=== PATIENT | female | born 1940 | race Caucasian/White ===

== ENCOUNTER 2017-08-28 10:04 | Inpatient (IN) ==
[2017-08-28] MEDS ORDERED: ALPRAZOLAM 0.5 MG PO PRN (12:39)
[2017-08-28] MEDS ORDERED: Sennosides/Docusate Sodium TABLET PO PRN (12:39)
[2017-08-28] MEDS ORDERED: levoFLOXacin 500 MG TABLET PO SCH (12:45)
[2017-08-28] MEDS: ALPRAZolam 0.5 MG TABLET PO PRN (20:43)
[2017-08-28] MEDS: Famotidine 20 MG TABLET PO SCH (20:43)
[2017-08-29] MEDS: ALPRAZolam 0.5 MG TABLET PO PRN ×5 (00:49→23:25)
[2017-08-29 05:43] LABS: Basophils % 0.2 %; Eosinophils # 0.1 K/mcL (0.0-0.6); Eosinophils % 0.8 %; Hematocrit 32.4 % (35.3-44.9); Hemoglobin 10.2 g/dL (11.5-15.4); Lymphocytes # 2.7 K/mcL (0.6-4.6); Lymphocytes % 21.6 %; Mean Corpuscular HGB Conc 31.5 g/dL (31.6-35.5); Mean Corpuscular Hemoglobin 25.6 pg (28.0-33.3); Mean Corpuscular Volume 81.4 fL (83.0-100.0); Mean Platelet Volume 9.8 fL (9.4-12.4); Monocytes # 0.8 K/mcL (0.0-1.3); Monocytes % 6.3 %; Neutrophils # 8.8 K/mcL (1.6-8.9); Platelet Count 399 K/mcL (140-400); Red Blood Count 3.98 M/mcL (3.82-4.97); Segmented Neutrophils % 70.1 %
[2017-08-29 05:49] LABS: INR 1.1; Prothrombin Time 12.3 Seconds (9.4-12.1)
[2017-08-29 05:52] LABS: Activated Partial Thrombo Time 29.2 Seconds (26.0-36.0)
[2017-08-29 06:13] LABS: Anisocytosis 2+ (Not Present); Poikilocytosis 1+ (Not Present)
[2017-08-29 06:14] LABS: Hypochromasia Present (Not Present); Target Cells 1+ (Not Present)
[2017-08-29 06:16] LABS: Platelet Estimate Normal (Normal)
[2017-08-29 06:18] LABS: BUN/Creatinine Ratio 13 (6-26); Blood Urea Nitrogen 10 mg/dL (7-20); Calcium 9.1 mg/dL (8.6-10.8); Carbon Dioxide 31 mEq/L (19-29); Chloride 101 mEq/L (98-109); Glucose 76 mg/dL (70-99); Osmolality,Calculated 292 (280-300); Potassium 3.8 mEq/L (3.5-4.5); Sodium 142 mEq/L (136-145); eGFR For African Americans > 60 (> 60); eGFR For Non-African Americans > 60 (> 60)
[2017-08-29] MEDS: Metoprolol XL (24 HR) Succ 25 MG TAB.ER.24H PO SCH (11:12)
[2017-08-29] MEDS: Aspirin Enteric Coated 325 MG Tablet PO SCH ×2 (11:12→11:18)
[2017-08-29] MEDS: Spironolactone 25 MG TABLET PO SCH (11:13)
--- NOTE | 2017-08-29 14:22 | Internal Med History&Physical ---
Date of Encounter: 08/29/17 Time of Encounter: 13:45 Assessment and Plan (1) Bilateral pneumonia Current visit: No Status: Acute Appears clinically resolved. We will discontinue antibiotic. Qualifiers: Pneumonia type: due to unspecified organism Lung location: unspecified part of lung Qualified Code(s): J18.9 - Pneumonia, unspecified organism (2) Microcytic anemia Current visit: Yes Status: Acute Suspect iron deficiency with use of aspirin and known cecal mass. Will order anemia testing in a.m. (3) Congestive heart failure Current visit: No Status: Chronic Echocardiogram 08/25/2017 showed LVEF of 20% with indeterminant diastolic function. There was mild aortic regurgitation and mild mitral regurgitation. Qualifiers: Congestive heart failure type: systolic Congestive heart failure chronicity : acute Qualified Code(s): I50.21 - Acute systolic (congestive) heart failure (4) Cecum mass Current visit: No Status: Acute Will order repeat CT scan of abdomen/pelvis. CEA was elevated at 8.0 on 2016. We will recheck CEA in a.m. (5) Dementia Current visit: No Status: Chronic Head CT 01/01/2017 showed no acute findings. Will order TSH and B12 level. Qualifiers: Dementia type: unspecified type Dementia behavioral disturbance: without behavioral disturbance Qualified Code(s): F03.90 - Unspecified dementia without behavioral disturbance Internal Medicine - H&P: HPI Chief complaint: Sepsis Admitted From: Hospital to Hospital Transfer Plans for Post Hospital Care: Transfer Group Home Care History of present illness: Ms. Linn is a 77 year old female who was hospitalized at [facility] August 21 after presenting with dyspnea. She was felt to have HCAP and was given IV antibiotics. Cultures were negative. It was felt she would benefit from ongoing therapy and she was transferred to [facility] swing bed. She has significant dementia and could not give any reliable history. Past Med Surg Social Fam HX - Past Medical History Medical history: no medical history, dementia, other Psychiatric history: anxiety, depression - Social History Smoking Status: Current every day smoker Smokeless Tobacco Status: No Alcohol use: rarely Drug use: none - Family History Father Family Member Ethnicity: Non- Living Status: Mother Family Member Ethnicity: Non- Living Status: Hx Family Cardiac Disorders: Yes (VA, Stroke) Brother Family Member Ethnicity: Non- Living Status: Still Living Hx Family Endocrine Disorder: Yes (DM) Internal Medicine - H&P: Meds Alprazolam [Alprazolam Xr] 0.5 mg PO Q4H PRN 08/21/17 [History] Aspirin/Calcium Carbonate/Mag [Aspirin Buffered 325 mg Tab] 325 mg PO DAILY 01/01 [History] Metoprolol XL (24 HR) Succ [Toprol Xl] 25 mg PO DAILY 08/21/17 [History] Ranitidine HCl [Heartburn Relief] 150 mg PO HS 08/21/17 [History] Sennosides/Docusate Sodium [Senna-Docusate Sodium Tablet] 1 tab PO DAILY PRN 01/01 [History] Spironolactone [Aldactone] 25 mg PO DAILY 08/21/17 [History] ALPRAZolam [Xanax 0.5 MG Tablet] 0.5 mg PO Q4H PRN #20 tablet 08/27/17 [Rx] HYDROcodone/Acet 5/325 mg [[place] 5-325 mg] 1 tab PO Q4H PRN #20 tablet 08/27/17 [Rx] levoFLOXacin [Levaquin] 750 mg PO Q48H #3 tablet 08/27/17 [Rx] 3 Allergy/AdvReac Type Severity Reaction Status Date / Time Sulfa (Sulfonamide Allergy Rash Verified 08/21/17 09:10 Antibiotics) All Systems PM: A 10-system review of systems was performed and is negative for pertinent findings except as documented above in the HPI. Review of systems: Unobtainable from the patient. Review of medical records reveal the following: Gen.: Her weight has decreased from 42.6 kg 01/01/2017 to 36.2 kg on admission now. Cardiovascular: There is no documented hypertension. She has chronic systolic heart failure with echocardiogram done during her recent [facility] stay showing LVEF of 20%. There was indeterminate diastolic function. There was mild aortic regurgitation and mild mitral regurgitation. Carotid Doppler studies 2011 showed right ICA with 60-79% stenosis and minimal left carotid system plaque. No mention of VA DVT or pulmonary embolus. Respiratory: Patient has smoked up to 2 packs per day for at least 40 years. No PFTs are found. GI: She was found to have a 3.1 x 3.4 x 3.7 cm cecal mass on December 2016 abdomen/ pelvis CT scan. She left AMA and apparently no surgery has been done for presumed primary colon cancer. No mention of disorders of liver or exocrine pancreas. : No mention of hematuria dysuria or kidney stones Neurologic: She has dementia. There is no mention of large distribution strokes or seizures. 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 She has microcytic anemia on blood work today. Psychiatric: No mention of anxiety depression or other mental health issues Musk skeletal: No mention of arthritis gout other bone joint or muscle disorders. - Constitutional Vitals: Temp Pulse Resp BP Pulse Ox 98.1 F 115 18 115/74 93 08/29/17 10:30 08/29/17 10:30 08/29/17 10:30 08/29/17 10:30 08/29/17 11:26 Exam: Gen.: She is well-developed lean female lying in bed who appears in no acute distress she is pleasant but confused. HEENT: Head is atraumatic and normocephalic. Eyes: EOMI. There is no scleral icterus. Mouth: Mucosa is moist. Neck: Supple and nontender. There is no thyromegaly or adenopathy noted. Heart: Regular without murmurs gallops or ectopics rate is approximately 104/m. Lungs: She has diminished breath sounds diffusely. No wheezes or crackles are heard. Abdomen: Soft and nontender. No masses or guarding are noted. 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 There is trace edema in the rebeca-malleolar area. Dorsalis pedis and posttibial pulses are trace palpable bilaterally. Her feet are warm to touch. She has DJD changes of her hands. Neurologic: Mental status: She attempts to answer questions but is a very poor historian. She does not know her age, location, or any significant past history. Cranial nerves: Smile is symmetric. Forehead wrinkles bilaterally. Tongue protrudes midline. EOMI. Motor: There is no pronator drift. Cerebellar : Finger to nose is intact bilaterally. Skin: Warm and dry Internal Med - H&P Results - Labs CBC & Chem 7: 08/29/17 05:12 08/29/17 05:12 Labs: Short CBC 08/29/17 Range/Units 05:12 WBC 12.6 H (4.3-11.1) K/mcL Hgb 10.2 L (11.5-15.4) g/dL Hct 32.4 L (35.3-44.9) % Plt Count 399 (140-400) K/mcL Neutrophils # 8.8 (1.6-8.9) K/mcL BMP 08/29/17 05:12 Sodium 142 Potassium 3.8 Chloride 101 Carbon Dioxide 31 H BUN 10 Creatinine 0.75 Glucose 76 Calcium 9.1
[2017-08-29] MEDS: Famotidine 20 MG TABLET PO SCH (20:27)
[2017-08-30] MEDS: ALPRAZolam 0.5 MG TABLET PO PRN ×3 (06:44→23:11)
[2017-08-30] MEDS: Metoprolol XL (24 HR) Succ 25 MG TAB.ER.24H PO SCH (14:15)
[2017-08-30] MEDS: Spironolactone 25 MG TABLET PO SCH (14:15)
[2017-08-30] MEDS: Aspirin 81 MG TAB.CHEW PO SCH (14:15)
--- NOTE | 2017-08-30 15:01 | Internal Med Progress Note ---
Date of Encounter: 08/30/17 Time of Encounter: 14:55 - Assessment and plan (1) Bilateral pneumonia Current Visit: No Status: Acute Assessment and plan: August 30. Remain off antibiotic. Qualifiers: Pneumonia type: due to unspecified organism Lung location: unspecified part of lung Qualified Code(s): J18.9 - Pneumonia, unspecified organism (2) Microcytic anemia Current Visit: Yes Status: Acute Assessment and plan: August 30. Labs have just been drawn. (3) Congestive heart failure Current Visit: No Status: Chronic Assessment and plan: August 30. Continue Toprol and Aldactone. Qualifiers: Congestive heart failure type: systolic Congestive heart failure chronicity : acute Qualified Code(s): I50.21 - Acute systolic (congestive) heart failure (4) Cecum mass Current Visit: No Status: Acute Assessment and plan: August 30. Cecal mass has increased in size since the December 2016 CT scan. No evidence of metastases are seen. I suspect this is primary colon cancer. 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 (5) Dementia Current Visit: No Status: Chronic Assessment and plan: August 30. Dementia workup labs are pending. Qualifiers: Dementia type: unspecified type Dementia behavioral disturbance: without behavioral disturbance Qualified Code(s): F03.90 - Unspecified dementia without behavioral disturbance - Subjective Interval history: August 30. She is sleeping at present time and does not awaken to voice or light touch. She declined blood draw this morning. Lab personnel have just completed the venopuncture. No new problems are reported by nursing staff. - Constitutional Vitals: Temp Pulse Resp BP Pulse Ox 98.8 F 89 18 116/71 93 08/29/17 20:59 08/29/17 20:59 08/29/17 20:59 08/29/17 20:59 08/29/17 20:59 Exam: She is resting comfortably and appears in no acute distress. Her heart is regular with rate approximately 104/m. Lungs are clear anteriorly. I reviewed her medications, labs, and CT report. Internal Medicine: Result - Labs CBC & Chem 7: 08/29/17 05:12 08/29/17 05:12 - ABG Interpretation ABG results: PT/INR, D-dimer PT 12.3 Seconds (9.4-12.1) H 08/29/17 05:12 - Impressions Impressions Abdomen/Pelvis CT 08/29/17 14:35 IMPRESSION: 1. Evaluation limited by lack of intravenous contrast. An ill-defined circumferential mass in the region of the cecum measures up to 4.8 x 4.0 cm, moderately increased in size from prior exam. No definite evidence of metastatic disease. 2. Partially visualized left pleural effusion. Small fluid density focus along the right major fissure measuring up to 11 mm is favored to represent fluid within the fissure. 3. Small cystic focus measuring 7 mm within the left hepatic lobe is stable from prior exams, and is technically too small to characterize but is most consistent with a simple cyst. 4. Small bilateral adrenal adenomas. D/ / 08/29/2017 15:43:59 Han Ashraf MD / [facility] Interpreting Provider: Han Ashraf MD Consult Discharge Plan - Plan Referrals: Damon Gerber MD [Primary Care Provider] - 1 week
[2017-08-30 15:20] LABS: Phosphorous 2.9 mg/dL (2.3-4.7)
[2017-08-30 15:42] LABS: Thyroid Stimulating Hormone 3.553 mcIU/mL (0.350-4.840)
[2017-08-30] MEDS: Famotidine 20 MG TABLET PO SCH (19:34)
[2017-08-30 19:40] LABS: Carcinoembryonic Antigen 8.4 ng/mL (Less than 5.0)
[2017-08-31] MEDS: Spironolactone 25 MG TABLET PO SCH (07:57)
[2017-08-31] MEDS: Metoprolol XL (24 HR) Succ 25 MG TAB.ER.24H PO SCH (07:58)
[2017-08-31] MEDS: Aspirin 81 MG TAB.CHEW PO SCH (07:58)
[2017-08-31 08:13] LABS: Basophils # 0.1 K/mcL (0.0-0.2); Basophils % 0.3 %; Eosinophils # 0.1 K/mcL (0.0-0.6); Eosinophils % 0.5 %; Hemoglobin 12.1 g/dL (11.5-15.4); Immature Granulocytes % 0.6 % (0-4); Mean Corpuscular Hemoglobin 25.6 pg (28.0-33.3); Mean Corpuscular Volume 82.5 fL (83.0-100.0); Mean Platelet Volume 9.5 fL (9.4-12.4); Monocytes # 1.1 K/mcL (0.0-1.3); Monocytes % 5.3 %; Neutrophils # 15.8 K/mcL (1.6-8.9); Platelet Count 469 K/mcL (140-400); Red Blood Count 4.73 M/mcL (3.82-4.97); Segmented Neutrophils % 78.3 %
[2017-08-31 09:08] LABS: Platelet Estimate Increased (Normal); Poikilocytosis 1+ (Not Present); Target Cells 1+ (Not Present)
[2017-08-31] MEDS: ALPRAZolam 0.5 MG TABLET PO PRN (10:33)
[2017-08-31] MEDS: Isosorbide MONOnitrate (24 HR) 30 MG TAB.ER.24H PO SCH (12:40)
[2017-08-31] MEDS: Bumetanide 1 MG TABLET PO SCH (12:40)
--- NOTE | 2017-08-31 15:32 | Internal Med Progress Note ---
Date of Encounter: 08/31/17 Time of Encounter: 11:30 - Assessment and plan (1) Bilateral pneumonia Current Visit: No Status: Acute Assessment and plan: August 30. Remain off antibiotic. Qualifiers: Pneumonia type: due to unspecified organism Lung location: unspecified part of lung Qualified Code(s): J18.9 - Pneumonia, unspecified organism (2) Microcytic anemia Current Visit: Yes Status: Acute Assessment and plan: August 30. Labs have just been drawn. August 31. Anemia testing shows iron 22, transferrin saturation 10%, transferrin 157, ferritin 231, B12 639, and folate 15.0. I will start her on ferrous sulfate with vitamin C. (3) Congestive heart failure Current Visit: No Status: Chronic Assessment and plan: August 30. Continue Toprol and Aldactone. Qualifiers: Congestive heart failure type: systolic Congestive heart failure chronicity : acute Qualified Code(s): I50.21 - Acute systolic (congestive) heart failure (4) Cecum mass Current Visit: No Status: Acute Assessment and plan: August 30. Cecal mass has increased in size since the December 2016 CT scan. No evidence of metastases are seen. I suspect this is primary colon cancer. I attempted unsuccessfully to reach her listed contact lens polisher. August 31. I discussed this with her grandson. He reports cardiology has recommended stents be placed prior to consideration for surgery. I explained to him that the patient's LVEF was 20% and that surgery/anesthesia might be reluctant to proceed with a significant surgical procedure. I told him an alternative would be comfort measures/hospice. (5) Dementia Current Visit: No Status: Chronic Assessment and plan: August 30. Dementia workup labs are pending. August 31. B12 and TSH were normal. Qualifiers: Dementia type: unspecified type Dementia behavioral disturbance: without behavioral disturbance Qualified Code(s): F03.90 - Unspecified dementia without behavioral disturbance (6) Heart failure Current Visit: Yes Status: Chronic Assessment and plan: August 31. Continue Toprol and Aldactone. I started her on isosorbide and Bumex. We will monitor BNP peptide and clinical response. Qualifiers: Heart failure type: systolic Heart failure chronicity: chronic Qualified Code(s): I50.22 - Chronic systolic (congestive) heart failure - Subjective Interval history: August 30. She is sleeping at present time and does not awaken to voice or light touch. She declined blood draw this morning. Lab personnel have just completed the venopuncture. No new problems are reported by nursing staff. August 31. She has no complaints. She is still lethargic. - Constitutional Vitals: Temp Pulse Resp BP Pulse Ox 97.6 F 104 18 128/75 94 08/31/17 07:43 08/31/17 07:43 08/31/17 07:43 08/31/17 07:43 08/31/17 07:43 Exam: She is resting comfortably in bed. She opens her eyes minimally to light touch and voice. Extremities show no edema. Heart is regular without murmurs gallops or ectopics. Lungs are clear anteriorly. I reviewed her medications and lab results. I spoke with her grandson about her diagnosis. Internal Medicine: Result - Labs CBC & Chem 7: 08/31/17 07:45 08/29/17 05:12 Labs: Short CBC 08/31/17 Range/Units 07:45 WBC 20.2 H D (4.3-11.1) K/mcL Hgb 12.1 D (11.5-15.4) g/dL Hct 39.0 (35.3-44.9) % Plt Count 469 H (140-400) K/mcL Neutrophils # 15.8 H (1.6-8.9) K/mcL - ABG Interpretation ABG results: PT/INR, D-dimer PT 12.3 Seconds (9.4-12.1) H 08/29/17 05:12 - Impressions Impressions Chest CT 08/31/17 11:47 IMPRESSION: 1. Diffuse bilateral tree-in-bud opacities likely due to bronchiolitis rather than endobronchial metastatic disease. 2. Focal ground-glass opacities and consolidation within the bilateral upper and left lower lobes likely due to developing pneumonia. Recommend chest CT in 8 weeks to confirm resolution. 3. Enlarging small to moderate left pleural effusion with partial collapse of the left lower lobe. 4. Unchanged 4 mm right upper lobe pulmonary nodule. D/ / 08/31/2017 14:16:21 Jerald Cordova MD / [facility] Interpreting Provider: Jerald Cordova MD Consult Discharge Plan - Plan Referrals: Damon Gerber MD [Primary Care Provider] - 1 week
[2017-08-31] MEDS: *HR* HYDROcodone/Acet 5/325 mg TABLET PO PRN (19:50)
[2017-08-31] MEDS: ALPRAZolam 0.25 MG TABLET PO PRN (19:51)
[2017-08-31] MEDS: Famotidine 20 MG TABLET PO SCH (19:51)
[2017-09-01] MEDS: Ascorbic Acid 500 MG TABLET PO SCH (06:21)
[2017-09-01] MEDS: Bumetanide 1 MG TABLET PO SCH (08:09)
[2017-09-01] MEDS: Isosorbide MONOnitrate (24 HR) 30 MG TAB.ER.24H PO SCH (08:09)
[2017-09-01] MEDS: Metoprolol XL (24 HR) Succ 25 MG TAB.ER.24H PO SCH (08:09)
[2017-09-01] MEDS: Spironolactone 25 MG TABLET PO SCH (08:09)
[2017-09-01] MEDS: Aspirin 81 MG TAB.CHEW PO SCH (08:10)
[2017-09-01] MEDS: Nicotine 21 MG PATCH.TD24 TD SCH (14:20)
[2017-09-01] MEDS: ALPRAZolam 0.25 MG TABLET PO PRN ×2 (14:21→19:34)
[2017-09-01] MEDS ORDERED: Oxymetazoline Nasal SPRAY BOTTLE NS PRN (17:14)
--- NOTE | 2017-09-01 18:43 | Internal Med Progress Note ---
Date of Encounter: 09/01/17 Time of Encounter: 18:35 - Assessment and plan (1) Bilateral pneumonia Current Visit: No Status: Acute Assessment and plan: August 30. Remain off antibiotic. Qualifiers: Pneumonia type: due to unspecified organism Lung location: unspecified part of lung Qualified Code(s): J18.9 - Pneumonia, unspecified organism (2) Microcytic anemia Current Visit: Yes Status: Acute Assessment and plan: August 30. Labs have just been drawn. August 31. Anemia testing shows iron 22, transferrin saturation 10%, transferrin 157, ferritin 231, B12 639, and folate 15.0. I will start her on ferrous sulfate with vitamin C. (3) Congestive heart failure Current Visit: No Status: Chronic Assessment and plan: August 30. Continue Toprol and Aldactone. September 01. Continue Toprol, Aldactone, Bumex, and isosorbide. Qualifiers: Congestive heart failure type: systolic Congestive heart failure chronicity : acute Qualified Code(s): I50.21 - Acute systolic (congestive) heart failure (4) Cecum mass Current Visit: No Status: Acute Assessment and plan: August 30. Cecal mass has increased in size since the December 2016 CT scan. No evidence of metastases are seen. I suspect this is primary colon cancer. I attempted unsuccessfully to reach her listed wardsperson. August 31. I discussed this with her grandson. He reports cardiology has recommended stents be placed prior to consideration for surgery. I explained to him that the patient's LVEF was 20% and that surgery/anesthesia might be reluctant to proceed with a significant surgical procedure. I told him an alternative would be comfort measures/hospice. (5) Dementia Current Visit: No Status: Chronic Assessment and plan: August 30. Dementia workup labs are pending. August 31. B12 and TSH were normal. Qualifiers: Dementia type: unspecified type Dementia behavioral disturbance: without behavioral disturbance Qualified Code(s): F03.90 - Unspecified dementia without behavioral disturbance - Subjective Interval history: August 30. She is sleeping at present time and does not awaken to voice or light touch. She declined blood draw this morning. Lab personnel have just completed the venopuncture. No new problems are reported by nursing staff. August 31. She has no complaints. She is still lethargic. September 01. She has no complaints. She is fully awake and talkative now. - Constitutional Vitals: Temp Pulse Resp BP Pulse Ox 98.2 F 88 17 117/62 98 09/01/17 07:06 09/01/17 07:06 09/01/17 07:06 09/01/17 07:06 09/01/17 13:20 Exam: She is sitting on the side of the bed and appears in no acute distress. Extremities show no edema. Heart is regular without murmurs gallops or ectopics. Lungs are clear with diminished breath sounds diffusely. I reviewed her medications and lab results. Internal Medicine: Result - Labs CBC & Chem 7: 08/31/17 07:45 08/29/17 05:12 - ABG Interpretation ABG results: PT/INR, D-dimer PT 12.3 Seconds (9.4-12.1) H 08/29/17 05:12 - Impressions Impressions Abdomen/Pelvis CT 08/29/17 14:35 IMPRESSION: 1. Evaluation limited by lack of intravenous contrast. An ill-defined circumferential mass in the region of the cecum measures up to 4.8 x 4.0 cm, moderately increased in size from prior exam. No definite evidence of metastatic disease. 2. Partially visualized left pleural effusion. Small fluid density focus along the right major fissure measuring up to 11 mm is favored to represent fluid within the fissure. 3. Small cystic focus measuring 7 mm within the left hepatic lobe is stable from prior exams, and is technically too small to characterize but most likely represents a simple cyst. 4. Small bilateral adrenal adenomas. D/ / 08/29/2017 15:43:59 Han Ashraf MD / [facility] Interpreting Provider: Han Ashraf MD Consult Discharge Plan - Plan Referrals: Damon Gerber MD [Primary Care Provider] - 1 week
[2017-09-01] MEDS: *HR* HYDROcodone/Acet 5/325 mg TABLET PO PRN (19:33)
[2017-09-01] MEDS: Famotidine 20 MG TABLET PO SCH (19:34)
[2017-09-02] MEDS: *HR* HYDROcodone/Acet 5/325 mg TABLET PO PRN ×2 (04:40→16:43)
[2017-09-02] MEDS: Ascorbic Acid 500 MG TABLET PO SCH (04:41)
[2017-09-02] MEDS: ALPRAZolam 0.25 MG TABLET PO PRN ×2 (04:41→16:44)
[2017-09-02 07:35] LABS: Basophils # 0.1 K/mcL (0.0-0.2); Basophils % 0.4 %; Eosinophils # 0.2 K/mcL (0.0-0.6); Hematocrit 29.8 % (35.3-44.9); Hemoglobin 9.5 g/dL (11.5-15.4); Immature Granulocytes % 0.8 % (0-4); Lymphocytes % 12.6 %; Mean Corpuscular HGB Conc 31.9 g/dL (31.6-35.5); Mean Corpuscular Volume 81.4 fL (83.0-100.0); Mean Platelet Volume 9.3 fL (9.4-12.4); Monocytes # 1.2 K/mcL (0.0-1.3); Monocytes % 7.5 %; Neutrophils # 12.1 K/mcL (1.6-8.9); Platelet Count 487 K/mcL (140-400); Red Blood Count 3.66 M/mcL (3.82-4.97); Segmented Neutrophils % 77.7 %
[2017-09-02 07:47] LABS: BUN/Creatinine Ratio 23 (6-26); Blood Urea Nitrogen 18 mg/dL (7-20); Calcium 8.5 mg/dL (8.6-10.8); Carbon Dioxide 30 mEq/L (19-29); Chloride 102 mEq/L (98-109); Glucose 92 mg/dL (70-99); Osmolality,Calculated 292 (280-300); Potassium 3.4 mEq/L (3.5-4.5); Sodium 140 mEq/L (136-145); eGFR For African Americans > 60 (> 60); eGFR For Non-African Americans > 60 (> 60)
[2017-09-02 07:59] LABS: Hypochromasia Present (Not Present); Platelet Estimate Normal (Normal); Target Cells 2+ (Not Present)
[2017-09-02] MEDS: Spironolactone 25 MG TABLET PO SCH (15:06)
[2017-09-02] MEDS: Bumetanide 1 MG TABLET PO SCH (15:06)
[2017-09-02] MEDS: Isosorbide MONOnitrate (24 HR) 30 MG TAB.ER.24H PO SCH (15:06)
[2017-09-02] MEDS: Aspirin 81 MG TAB.CHEW PO SCH (15:06)
[2017-09-02] MEDS: Metoprolol XL (24 HR) Succ 25 MG TAB.ER.24H PO SCH (15:06)
[2017-09-02] MEDS: Nicotine 21 MG PATCH.TD24 TD SCH (15:08)
[2017-09-02] MEDS ORDERED: Aspirin 81 MG TAB.CHEW PO SCH (17:15)
[2017-09-02] MEDS: Famotidine 20 MG TABLET PO SCH (22:56)
[2017-09-03] MEDS: *HR* HYDROcodone/Acet 5/325 mg TABLET PO PRN (00:49)
[2017-09-03] MEDS: ALPRAZolam 0.25 MG TABLET PO PRN ×2 (00:50→18:08)
[2017-09-03] MEDS: Metoprolol XL (24 HR) Succ 25 MG TAB.ER.24H PO SCH (12:30)
[2017-09-03] MEDS: Isosorbide MONOnitrate (24 HR) 30 MG TAB.ER.24H PO SCH ×2 (12:31→14:32)
[2017-09-03] MEDS: Bumetanide 1 MG TABLET PO SCH ×2 (12:31→14:31)
[2017-09-03] MEDS: Spironolactone 25 MG TABLET PO SCH ×2 (12:32→14:31)
[2017-09-03] MEDS: Nicotine 21 MG PATCH.TD24 TD SCH (12:38)
[2017-09-03] MEDS: Ascorbic Acid 500 MG TABLET PO SCH ×2 (12:38→14:31)
[2017-09-03] MEDS: Famotidine 20 MG TABLET PO SCH (22:20)
[2017-09-04] MEDS: ALPRAZolam 0.25 MG TABLET PO PRN (00:27)
[2017-09-04 12:12] VITALS: BP 108/66
--- NOTE | 2017-09-04 13:48 | Discharge Summary ---
Date of Encounter: 09/04/17 Time of Encounter: 13:40 - Discharge Diagnosis (1) Bilateral pneumonia Priority: Primary Status: Acute Qualifiers: Pneumonia type: due to unspecified organism Lung location: unspecified part of lung Qualified Code(s): J18.9 - Pneumonia, unspecified organism (2) Microcytic anemia Priority: Secondary Status: Acute (3) Congestive heart failure Priority: Secondary Status: Chronic Qualifiers: Congestive heart failure type: systolic Congestive heart failure chronicity : acute Qualified Code(s): I50.21 - Acute systolic (congestive) heart failure (4) Cecum mass Priority: Secondary Status: Chronic (5) Dementia Priority: Secondary Status: Chronic Qualifiers: Dementia type: unspecified type Dementia behavioral disturbance: without behavioral disturbance Qualified Code(s): F03.90 - Unspecified dementia without behavioral disturbance - Discharge Medications Prescriptions: Ascorbic Acid [Vitamin C] 500 mg PO 0630 #30 tablet Bumetanide [Bumex] 0.5 mg PO DAILY #7 tablet Ferrous Sulfate 325 mg PO 0630 #30 tablet Isosorbide MONOnitrate (24 HR) [Imdur] 30 mg PO DAILY #30 tab.er.24h Potassium Chloride 10 meq PO DAILY #14 tab.er.prt Home Medications: Alprazolam [Alprazolam Xr] 0.5 mg PO Q4H PRN 08/21/17 [History] Metoprolol XL (24 HR) Succ [Toprol Xl] 25 mg PO DAILY 08/21/17 [History] Ranitidine HCl [Heartburn Relief] 150 mg PO HS 08/21/17 [History] Sennosides/Docusate Sodium [Senna-Docusate Sodium Tablet] 1 tab PO DAILY PRN 01/01 [History] Spironolactone [Aldactone] 25 mg PO DAILY 08/21/17 [History] HYDROcodone/Acet 5/325 mg [[place] 5-325 mg] 1 tab PO Q4H PRN #20 tablet 08/27/17 [Rx] ALPRAZolam [Xanax 0.5 MG Tablet] 0.25 mg PO Q6H PRN #20 tablet 09/04/17 [Rx] Ascorbic Acid [Vitamin C] 500 mg PO 0630 #30 tablet 09/04/17 [Rx] Aspirin 81 mg PO Q48H tab.chew 09/04/17 [Rx] Bumetanide [Bumex] 0.5 mg PO DAILY #7 tablet 09/04/17 [Rx] Ferrous Sulfate 325 mg PO 0630 #30 tablet 09/04/17 [Rx] Isosorbide MONOnitrate (24 HR) [Imdur] 30 mg PO DAILY #30 tab.er.24h 09/04/17 [ Rx] Potassium Chloride 10 meq PO DAILY #14 tab.er.prt 09/04/17 [Rx] Allergies/Adverse Reactions: 3 Allergy/AdvReac Type Severity Reaction Status Date / Time Sulfa (Sulfonamide Allergy Rash Verified 08/21/17 09:10 Antibiotics) Date of admission: 08/28/17 12:15 Primary care physician: Damon Gerber MD Consults: 08/28/17 12:31 Consult to Occupational Therapy [CONS] Routine Comment: Eval, Develop, and Implement P.O.C. Reason for Consult: Eval, Develop, and Implement P.O.C. Consult to Physical Therapy [CONS] Routine Comment: Eval, Develop, and Implement P.O.C. Reason for Consult: Eval, Develop, and Implement P.O.C. Consult to Optics Manufacturing Technician [CONS] Routine Reason for SW Consult: D/C planning - Patient Status Disposition: Hospice - Home - Discharge Instructions Follow Up With: Damon Gerber MD [Primary Care Provider] - 1 week - Diet and Activity Activity: resume usual activities as tolerated Diet: advance to your usual diet Hospital course: Ms. Linn is a 77 year old female who was hospitalized at [facility] August 21- after presenting with dyspnea. She was felt to have HCAP and was given IV antibiotics. Cultures were negative. It was felt she would benefit from ongoing therapy and she was transferred to [facility] swing bed. Initial orders were written by the discharging physicians at [facility]. I saw her on August 29 and performed a swing bed history and physical. She appeared clinically resolved from pneumonia so antibodies were not continued after the first day in swing bed. Abdominal/pelvic CT was done to follow-up on previously seen cecal mass. There was further enlargement of the mass compared to the December 2016 study without evidence of metastases. I spoke with her grandson Wilmer Waggoner about this. Family elected she be placed back on hospice without further aggressive intervention to be done. CEA returned further elevated at 8.4. Begin peptide was elevated at 4289. She was started on isosorbide and Bumex. The Bn peptide improved to 658 by September 02. She will continue on these medications with supplemental potassium at discharge. Physical therapy and occupational therapy evaluations were done. The patient had significantly impaired comprehension and could not participate significantly in therapy. Social service worked with APS to resolve potential issues in the home environment. I reviewed the social service note of 09/04/2017 at 0942. It was agreed the patient would go back on hospice services and be discharged to her grandson [facility]mer [facility] [place] [facility] [place]. She will follow with her PCP within one week. - Time Spent with Patient Total time spent providing and/or coordinating discharge services: - Constitutional Vitals: Temp Pulse Resp BP Pulse Ox 97.7 F 103 16 108/66 93 09/04/17 12:09 09/04/17 12:09 09/04/17 12:09 09/04/17 12:09/04/17 12:09
--- NOTE | 2017-09-04 14:05 | Physician Discharge Referral ---
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 For more information, call the [place] Tobacco Quit Line at 5-677-ILRI-NOW. - Diet/Nutrition Diet/Nutrition Orders: Regular - Activity Activity Orders: Walker - Services Needed Following services are medically necessary services: Nursing, Home Health Aide, Physical Therapy, Occupational Therapy - Transfer Medications Prescriptions: Ascorbic Acid [Vitamin C] 500 mg PO 0630 #30 tablet Bumetanide [Bumex] 0.5 mg PO DAILY #7 tablet Ferrous Sulfate 325 mg PO 0630 #30 tablet Isosorbide MONOnitrate (24 HR) [Imdur] 30 mg PO DAILY #30 tab.er.24h Potassium Chloride 10 meq PO DAILY #14 tab.er.prt Home Medications: Alprazolam [Alprazolam Xr] 0.5 mg PO Q4H PRN 08/21/17 [History] Metoprolol XL (24 HR) Succ [Toprol Xl] 25 mg PO DAILY 08/21/17 [History] Ranitidine HCl [Heartburn Relief] 150 mg PO HS 08/21/17 [History] Sennosides/Docusate Sodium [Senna-Docusate Sodium Tablet] 1 tab PO DAILY PRN 01/01 [History] Spironolactone [Aldactone] 25 mg PO DAILY 08/21/17 [History] HYDROcodone/Acet 5/325 mg [[place] 5-325 mg] 1 tab PO Q4H PRN #20 tablet 08/27/17 [Rx] ALPRAZolam [Xanax 0.5 MG Tablet] 0.25 mg PO Q6H PRN #20 tablet 09/04/17 [Rx] Ascorbic Acid [Vitamin C] 500 mg PO 0630 #30 tablet 09/04/17 [Rx] Aspirin 81 mg PO Q48H tab.chew 09/04/17 [Rx] Bumetanide [Bumex] 0.5 mg PO DAILY #7 tablet 09/04/17 [Rx] Ferrous Sulfate 325 mg PO 0630 #30 tablet 09/04/17 [Rx] Isosorbide MONOnitrate (24 HR) [Imdur] 30 mg PO DAILY #30 tab.er.24h 09/04/17 [ Rx] Potassium Chloride 10 meq PO DAILY #14 tab.er.prt 09/04/17 [Rx] Allergies/Adverse Reactions: 3 Allergy/AdvReac Type Severity Reaction Status Date / Time Sulfa (Sulfonamide Allergy Rash Verified 08/21/17 09:10 Antibiotics) Certification: Further, I certify that my clinical findings support that this patient is homebound (i.e. absences from home require considerable and taxing effort and are for medical reasons or yazdanism services or infrequently or short duration when for other reasons) because: Homebound Reason: Leaving home requires considerable and taxing effort due to condition (Colon cancer, anemia, advanced dementia) Attestation: My signature below is to certify that this patient is under my care and that I, or nurse practitioner, or a physician's perinatal breastfeeding assistant working with me, has a face-to -face encounter with this patient.
[2017-09-04] MEDS: Ascorbic Acid 500 MG TABLET PO SCH (15:11)
[2017-09-04] MEDS: Isosorbide MONOnitrate (24 HR) 30 MG TAB.ER.24H PO SCH (15:11)
[2017-09-04] MEDS: Bumetanide 1 MG TABLET PO SCH (15:11)
[2017-09-04] MEDS: Spironolactone 25 MG TABLET PO SCH (15:11)
[2017-09-04] MEDS: Nicotine 21 MG PATCH.TD24 TD SCH (15:11)
[2017-09-04] MEDS: Metoprolol XL (24 HR) Succ 25 MG TAB.ER.24H PO SCH (15:12)
== END 2017-09-04 16:10 | disposition hospice, home (50) | DRG 945 ==
LOC: INPPIK 12:15
PROVIDERS: ADMIT Internal Medicine; ATTEND Internal Medicine